=== PATIENT | female | born 1970 | race Caucasian/White ===

== ENCOUNTER 2016-09-25 13:47 | Inpatient (IN) | payer OTHER ==
[~2016-09-25] VITALS: Ht 162.6 cm; Wt 74.8 kg
[2016-09-26] MEDS ORDERED: SERT-129 PO (09:16)
[2016-09-26] MEDS ORDERED: HYDR-3535 PO (09:17)
[2016-09-26] MEDS ORDERED: GABA400C5 PO (09:18)
[2016-09-26] MEDS ORDERED: AMIT10TA6 PO (09:21)
[2016-09-26] MEDS ORDERED: ATOR20TA15 PO (09:22)
[2016-09-27] MEDS ORDERED: INSULIN HUMAN REGULAR 1,000 UNITS/10 ML VIAL SQ PRN (09:00)
[2016-09-27] MEDS ORDERED: POVIDONE IODINE 5% (ANTISEPSIS KIT) 4 APPLICATIONS EACH NARE PRN (09:00)
[2016-09-27] MEDS ORDERED: ceFAZolin 2 GM PREMIX 50 ML IV SCH (09:00)
[2016-09-27] MEDS ORDERED: CHLORHEXIDINE GLUCONATE 2 % 1 PACK (2 CLOTHS) TOPICAL PRN (09:00)
[2016-09-27] MEDS ORDERED: METOPROLOL TARTRATE 25 MG TAB PO PRN (09:00)
[2016-09-27] MEDS ORDERED: CHLORHEXIDINE GLUCONATE 4% SOLN 120 ML BTL TOPICAL SCH (09:00)
[2016-09-27] MEDS ORDERED: LACTATED RINGER'S 1000 ML IV PRN (09:00)
[2016-09-27] MEDS ORDERED: SODIUM CHLORID 0.9% 500 ML IV PRN (09:00)
[2016-09-27] MEDS ORDERED: VANCOMYCIN 1000 MG/NS 250 ML (for <70 kg) IV SCH ×2 (09:00)
[2016-09-27 09:12] VITALS: BP 116/74; PULSE 70; RESP 20; TEMP 98.7; O2SAT 98
[2016-09-27] MEDS ORDERED: PROPOFOL 500 MG/50 ML INJ 50 ML ONE (10:03)
[2016-09-27] MEDS ORDERED: SUFentanil INJ 250 MCG/5 ML AMP ONE (10:03)
[2016-09-27] MEDS ORDERED: GENTAMICIN SULFATE 80 MG/2 ML VIAL ONE (10:09)
[2016-09-27] MEDS ORDERED: LIDOCAINE 1%/EPINEPHrine 1:100,000 SOLN 30 ML VIAL ONE (10:09)
[2016-09-27] MEDS ORDERED: diphenhydrAMINE HCL 50 MG/ML VIAL ONE (10:22)
[2016-09-27] MEDS ORDERED: MIDAZOLAM HCL 2 MG/2 ML VIAL ONE (10:51)
[2016-09-27] MEDS ORDERED: FAMOTIDINE 20 MG/2 ML VIAL ONE (10:51)
[2016-09-27] MEDS ORDERED: PROPOFOL 200 MG/20 ML AMP IV ONE (12:00)
[2016-09-27] MEDS ORDERED: PROPOFOL 500 MG/50 ML BTL IV ONE (12:00)
[2016-09-27] MEDS ORDERED: LACTATED RINGER'S 1000 ML INJ 1,000 ML IV ONE (12:00)
[2016-09-27] MEDS ORDERED: ONDANSETRON HCL 4 MG/2 ML VIAL IV PUSH ONE (12:00)
[2016-09-27] MEDS ORDERED: SUGAMMADEX SODIUM 200 MG/2 ML VIAL IV PUSH ONE ×2 (12:00)
[2016-09-27] MEDS ORDERED: ePHEDrine/NS 25 MG/5 ML SYR IV ONE (12:00)
[2016-09-27] MEDS ORDERED: ACETAMINOPHEN 1000 MG/100 ML VIAL IV ONE (12:00)
--- NOTE | 2016-09-27 13:27 | PD.OP ---
cc: Gamaliel Nieto MD; Albert Nieto MD Operative Report Date of Surgery: Sep 27, 2016 Preoperative Diagnosis: Herniated nucleus pulposus C5 6 central. Herniated nucleus pulposus C6 7 central, right. Right greater than left cervical radiculopathy Postoperative Diagnosis: Same Procedure: Anterior cervical discectomy decompression with bilateral foraminotomies, C5 6. Anterocervical discectomy decompression with bilateral foraminotomies, C6 7. Left anterior iliac crest bone graft Anesthesia: Gen. Surgeon: Albert Nieto Recruiter Manager(s): INGRID Bagi Operation and Findings: EBL: 150 cc INDICATIONS: This patient is a 46-year-old female with significant neck and arm pain. She has radiating pain down both arms. Study shows evidence of a predominantly central disc herniation C5 6 and a central and right-sided disc herniation C6 7. She presents for surgical treatment. NOTE: Jenny Baig PA-C was present for the entire surgical procedure as my assistant media buyer. In my medical opinion her skill and care was necessary for proper management of this patient PROCEDURE: The patient was brought to the operating room and anesthetized in the supine position. This patient was positioned supine on the radiolucent table. All pressure points were protected in the anterior cervical spine and iliac crest was scrubbed with alcohol followed by Hibiclens followed by ChloraPrep. A timeout was done and antibiotics were given within 1 hour time window. Lateral radiographic images were used identifying the proper level. A right anterior incision was made in line with skin creases. The platysma was opened in line with the incision. Deep dissection continued in the interval between the carotid sheath and the esophagus. The longus-coli muscles were lifted on both sides and retractors were positioned allowing good exposure. Lateral radiographic images were used to identify the proper level. [place] style interosseous pins were placed at C5 and C6 allowing exposure to that level. The microscope was rolled into the field. A total discectomy was accomplished and posterior osteophytes were removed. The posterior longitudinal ligament and annulus was taken down. Bilateral foraminotomies were accomplished. The endplates were squared up anticipating later bone grafting. A blunt probe could be placed out each foramen without evidence of nerve root compromise. The C5 pin was placed down to C7. An anterior exposure was accomplished. We performed a total discectomy with excision of the posterior annulus and posterior longitudinal ligament. Bilateral foraminotomies were accomplished. Osteophytes were removed. The endplates were squared up anticipating later bone grafting. A blunt probe could be placed out each foramen without evidence of nerve root compromise. The left iliac crest was approached. A small stab incision was made allowing percutaneous access to the anterior iliac crest. Multiple cores of cancellous bone were harvested and taken to the back table to be used for later bone grafting. The wound was irrigated anesthetized and closed with 4-0 Vicryl followed by Dermabond. The case was turned over to Dr. Gamaliel Nieto for fusion and instrumentation per his dictation. FINDINGS: There was evidence of this disc herniation C5 6 centrally. That level was very unstable. At C6 7 there was a central and right-sided disc herniation. There was no complication was appreciated. There was significant foraminal stenosis which was decompressed. At the end of the procedure, there was no complication that was appreciated. NOTE: This surgery was performed in 2 parts. The first part was the neurosurgical decompression performed under the variable power stereo microscope by the undersigned in addition to the bone graft. The second portion of the surgery will be performed by the orthopedic spine component by co -surgeon, Dr. Gamaliel Nieto for the anterior fusion with interbody cage and anterior plate. The skill of 2 surgeons was necessary to perform distinct separate procedural services as dictated above and dictated in the following operative note by Dr. Gamaliel Nieto. Albert Nieto MD Sep 27, 2016 13:26
--- NOTE | 2016-09-27 14:20 | RADRPT ---
EXAM DATE/TIME: 09/27/2016 13:56 [facility] COMPARISON: No previous studies available for comparison. INDICATIONS : Post-op C5-C6-C7 anterior cervical fusion. MEDICAL HISTORY : None. SURGICAL HISTORY : None. ENCOUNTER: Initial ACUITY: 1 day PAIN SCORE: Non-responsive. LOCATION: neck FINDINGS: Surgical screws traverse the bodies of C5, C6, C7 with a plate placed anteriorly and evidence for ant erior fusion. CONCLUSION: Intact immediate postsurgical changes. Maria E Wilkinson MD on September 27, 2016 at 14:18 Board Certified Radiologist. This report was verified electronically.
[2016-09-27] MEDS ORDERED: Post-op Orders (for Pharmacy) MISC XX ONE (14:37)
--- NOTE | 2016-09-27 14:41 | HHI.PR ---
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 Visitor Services Specialist(s): Alix Muñoz PA-C Procedure: C5-7 ACDF Complications: none Estimated blood loss: 75 cc Anesthesia: General Drains: None Patient to: PACU Patient Condition: Good Implant/Devices: SEE IMPLANT LOG (if applicable) Date/Time of Procedure: SEE SURGICAL CARE RECORD Gamaliel Nieto MD Sep 27, 2016 14:41
[2016-09-27] MEDS: SODIUM CHLORIDE 0.9% FLUSH 5 ML FLUSH IVF SCH ×2 (14:45→21:13)
[2016-09-27] MEDS ORDERED: ALUMINUM/MAGNESIUM/SIMETH 30 ML CUP PO PRN (14:45)
[2016-09-27] MEDS ORDERED: ACETAMINOPHEN/HYDROcodone 325 MG/10 MG TAB PO PRN (14:45)
[2016-09-27] MEDS ORDERED: ONDANSETRON HCL 4 MG/2 ML VIAL IV PRN (14:45)
[2016-09-27] MEDS ORDERED: NALOXONE HCL 0.4 MG/ML AMP IV PRN ×2 (14:45)
[2016-09-27] MEDS ORDERED: SODIUM CHLORIDE 0.9% FLUSH 5 ML FLUSH IVF PRN (14:45)
[2016-09-27] MEDS ORDERED: PCA - TOTAL MG DILAUDID DELIVERED PER SHIFT SCH (14:45)
[2016-09-27] MEDS ORDERED: PROMETHAZINE INJ 25 MG/ML VIAL IM PRN (14:45)
[2016-09-27] MEDS ORDERED: fentaNYL CITRATE 250 MCG/5 ML AMP ONE (14:48)
[2016-09-27] MEDS ORDERED: *morphine SULFATE 8 MG/ML PERIprocedure ONLY ONE ×2 (14:53→15:07)
[2016-09-27] MEDS ORDERED: DO NOT ADM ANY ANTICOAGULANT DRUGS PRN (15:15)
[2016-09-27] MEDS: LACTATED RINGER'S 1000 ML INJ 1,000 ML IV SCH (15:20)
[2016-09-27] MEDS ORDERED: *HYDROmorphone PF 1 MG VIAL PERIprocedural Use ONLY ONE (15:45)
[2016-09-27 17:30] VITALS: BP 107/65; PULSE 89; RESP 16; TEMP 97; O2SAT 96
[2016-09-27] MEDS: ACETAMINOPHEN/HYDROcodone 325 MG/10 MG TAB PO PRN (18:42)
[2016-09-27 18:54] VITALS: O2SAT 99
[2016-09-27 20:00] VITALS: BP 112/68; PULSE 86; RESP 17; TEMP 97.3; O2SAT 96
[2016-09-27] MEDS: SERTRALINE HCL 100 MG TAB PO SCH (21:13)
[2016-09-27] MEDS: GABAPENTIN 400 MG CAP PO SCH (21:13)
[2016-09-27] MEDS: AMITRIPTYLINE HCL 10 MG TAB PO SCH (21:13)
[2016-09-27] MEDS: MORPHINE SULFATE 4 MG/ML INJ IV PUSH PRN (21:13)
[2016-09-27] MEDS: ATORVASTATIN 20 MG TAB PO SCH (21:13)
[2016-09-28] VITALS (7 sets, daily range): BP systolic 100–114; BP diastolic 57–67; PULSE 74–89; RESP 16–17; TEMP 97–98.5; O2SAT 94–98
[2016-09-28] MEDS: MORPHINE SULFATE 4 MG/ML INJ IV PUSH PRN ×3 (01:24→10:23)
[2016-09-28] MEDS: ACETAMINOPHEN/HYDROcodone 325 MG/10 MG TAB PO PRN ×4 (02:30→23:07)
[2016-09-28] MEDS: LACTATED RINGER'S 1000 ML INJ 1,000 ML IV SCH ×2 (03:02→12:51)
--- NOTE | 2016-09-28 07:07 | PD.ORT.PN ---
Subjective Subjective Remarks pt complains of post op neck pain and left arm pain, states right arm pain has resolved Objective Vitals Vital Signs Date Time Temp Pulse Resp B/P Pulse Ox O2 Delivery O2 Flow Rate FiO2 09/28/16 04:00 97.4 89 17 111/63 97 09/28/16 00:00 97.9 80 16 114/65 95 09/27/16 20:00 97.3 86 17 112/68 96 09/27/16 18:54 99 21 09/27/16 17:30 97.0 89 16 107/65 96 09/27/16 15:45 88 12 118/61 100 Nasal Cannula 2 09/27/16 15:30 97.7 84 14 119/67 100 Nasal Cannula 2 09/27/16 15:15 82 12 118/65 100 Nasal Cannula 2 09/27/16 15:00 88 14 124/64 100 Nasal Cannula 2 09/27/16 14:43 97.6 100 16 146/76 100 Nasal Cannula 2 09/27/16 09:12 98.7 70 20 116/74 98 I/O 09/27/16 09/27/16 09/27/16 09/28/16 09/28/16 09/28/16 07:00 15:00 23:00 07:00 15:00 23:00 Intake Total 1400 ml 580 ml 480 ml Output Total 25 ml Balance 1375 ml 580 ml 480 ml Intake Oral 480 ml 480 ml IV Total 100 ml Other 1400 ml Output Estimated Blood Loss 25 ml # Voids 2 2 # Bowel Movements 0 0 Objective Remarks also seen by Dr. Gamaliel Nieto [place] collar in place Dressing dry and intact Motor is +5/5 to UE except left wrist dorsiflexion 4.5/5 Assessment & Plan Assessment and Plan POD # 1 s/p C 5-7 ACDF [place] collar x 4 weeks patient counseled on no smoking, no NSAIDs and no overhead lifting She has [place] pain meds at home therefore no rx on discharge Follow up as scheduled orthopedically stable Alix Muñoz Sep 28, 2016 07:07
--- NOTE | 2016-09-28 08:43 | MP ---
cc: GAMALIEL HAM M.D., CARMEN L. MD DRIGGERS, WESLEY M.D. DATE OF SURGERY: 09/27/2016 PREOPERATIVE DIAGNOSIS: 1. C5-6 herniated nucleus pulposus, spinal instability. 2. C6-7 central right-sided herniated nucleus pulposus. 3. Cervical spine degenerative disc disease and osteoarthritis. 4. Bilateral cervical radiculitis with bilateral upper extremity weakness. POSTOPERATIVE DIAGNOSIS: 1. C5-6 herniated nucleus pulposus, spinal instability. 2. C6-7 central right-sided herniated nucleus pulposus. 3. Cervical spine degenerative disc disease and osteoarthritis. 4. Bilateral cervical radiculitis with bilateral upper extremity weakness. OPERATIVE PROCEDURE PERFORMED: C5-6, C6-7 interbody fusion; C5-6, C6-7 interbody fusion; C5-6 and C6-7 [employer]ine[employer] ACC Anterior Cervical Cage; C5-7 [employer] [place] anterior spinal instrumentation. CO-SURGEONS: Gamaliel Ham MD. Albert Ham MD. SMALL PACKAGE AND BUNDLE SORTER CLERK: Alix Muñoz PA-C. SPECIMEN: None. ESTIMATED BLOOD LOSS: 75 cc for the entire case. COMPLICATIONS: None. ANESTHESIA: General. DRAINS: None. CONDITION: Stable. PLAN OF ACTIVITY: As per orders. NOTE: Dr. Albert Ham and myself were co-surgeons for this surgical procedure. Dr. Albert Ham performed the neurodecompressive portion of procedure and also the left anterior iliac bone grafting. He performed C5-6, C6-7 anterior cervical diskectomy, anterior decompression including foraminotomies using an operative microscope and also performed left anterior iliac crest bone grafting. My executive personal assistant Alix Muñoz PA-C was present for my portion of the case. She was medically necessary for the entire case because of the complexity of the case and to facilitate the performance of the procedure. The STEAM SERVICE INSPECTOR at the back table did not have the skill set for this case to manipulate the instruments e.g. the trial implants and permanent implants including the soft tissue retractors. The end plates at C6-7 were prepared for fusion. The hyaline cartilage at the end plate was removed using angled curettes and burs. A 610 x 12 ACC cage was placed in the interspace. Anterior iliac crest bone grafting was placed under fluoroscopic guidance for interbody fusion. The patient was found to have an instability with kyphosis at C5-6 area. With the distraction pins, this was a nicely corrected. The end plates were removed using angled curettes and burs. A 610 x 12 ACC cage was placed in the interspace in a satisfactory manner. The 610 x 12 ACC cage was placed interspace. Anterior iliac crest bone graft was placed under fluoroscopic guidance for interbody fusion. A 40-mm length plate was contoured to the appropriate lordosis. Two screws were used in the vertebral bodies of C5, C6 and C7. Two plate tacks were used for fixation. This was confirmed on fluoroscopic guidance in the AP and lateral planes for appropriate positioning of the plate. Each of the screw holes were drilled and 12-mm length screws were inserted, 4.0 mm diameter screws, fixed angle screws and all screw heads were appropriately locked to the plate. The wound was irrigated with copious amounts of saline. The wound itself was dry. Intraoperative x-ray and fluoroscopy in AP and lateral planes confirmed satisfactory position of the bone graft at C5-6 at C6-7 with satisfactory placement of the C5-6 and C6-7 anterior cervical cages and satisfactory spinal instrumentation from C5-7. The wound was irrigated with copious amounts of sterile saline antibiotic solution. The wound itself was dry. The wound was closed in routine manner with multiple 3-0 Vicryl sutures. The skin was approximated with running subcuticular 4-0 Vicryl suture. Dermabond was placed over the incision. Sterile dressings were applied. The patient was placed in a [place] cervical orthosis. The patient tolerated the procedure well and went to the recovery room in stable and satisfaction condition. MD STEPHEN Bang/SULEIMAN /2:40 PM /8:37 AM
[2016-09-28] MEDS: SODIUM CHLORIDE 0.9% FLUSH 5 ML FLUSH IVF SCH ×2 (09:00→19:44)
[2016-09-28] MEDS: GABAPENTIN 400 MG CAP PO SCH ×2 (09:04→19:44)
[2016-09-28] MEDS: MULTIVITAMINS/MINERALS THERAPEUTIC TAB PO SCH ×2 (09:04→19:44)
[2016-09-28] MEDS ORDERED: CYCLOBENZAPRINE HCL 10 MG TAB PO PRN (15:15)
[2016-09-28] MEDS: SERTRALINE HCL 100 MG TAB PO SCH (19:44)
[2016-09-28] MEDS: AMITRIPTYLINE HCL 10 MG TAB PO SCH (19:44)
[2016-09-28] MEDS: ATORVASTATIN 20 MG TAB PO SCH (19:44)
[2016-09-29] VITALS: BP 100/58; PULSE 86; RESP 17; TEMP 98; O2SAT 94
[2016-09-29] MEDS: LACTATED RINGER'S 1000 ML INJ 1,000 ML IV SCH (00:44)
[2016-09-29] MEDS: ACETAMINOPHEN/HYDROcodone 325 MG/10 MG TAB PO PRN (05:24)
[2016-09-29 08:00] VITALS: BP 108/67; PULSE 69; RESP 18; TEMP 97.7; O2SAT 95
[2016-09-29] MEDS: GABAPENTIN 400 MG CAP PO SCH (08:33)
[2016-09-29] MEDS: MULTIVITAMINS/MINERALS THERAPEUTIC TAB PO SCH (08:33)
[2016-09-29] MEDS: SODIUM CHLORIDE 0.9% FLUSH 5 ML FLUSH IVF SCH (08:35)
--- NOTE | 2016-09-29 08:37 | PD.ORT.PN ---
Subjective Post Op Day #: 2 Subjective Remarks Pt reports her pain is much more under control today. Admits to mild left upper extremity pain. Numbness/tingling resolved. Ready for discharge to home today. Objective Vitals Vital Signs Date Time Temp Pulse Resp B/P Pulse Ox O2 Delivery O2 Flow Rate FiO2 09/29/16 00:00 98.0 86 17 100/58 94 09/28/16 20:00 97.8 85 16 102/62 97 09/28/16 16:00 98.5 80 16 101/57 95 09/28/16 12:00 97.0 74 16 100/62 95 I/O 09/28/16 09/28/16 09/28/16 09/29/16 09/29/16 09/29/16 07:00 15:00 23:00 07:00 15:00 23:00 Intake Total 480 ml 948 ml 480 ml 480 ml Balance 480 ml 948 ml 480 ml 480 ml Intake Oral 480 ml 840 ml 480 ml 480 ml IV Total 108 ml # Voids 2 4 2 2 # Bowel Movements 0 0 Procedures ACDF C5-7 (09/27/16) Objective Remarks [place] collar in place Dressing dry and intact Motor is +5/5 to UE except left wrist dorsiflexion 4.5/5 Assessment & Plan Ortho Post Op Day #: 2 Problem List: (1) Traumatic disc herniation of cervical spine (2) Degenerative arthritis of cervical spine with nerve compression Assessment and Plan POD # 2 s/p C 5-7 ACDF [place] collar x 4 weeks patient counseled on no smoking, no NSAIDs and no overhead lifting She has [place] pain meds at home therefore no rx on discharge Follow up as scheduled orthopedically stable and clear for discharge to home today. Christine Baig Sep 29, 2016 08:37
== END 2016-09-29 11:24 | disposition home or self-care (01) | DRG 473 ==
LOC: HSDI 09-27 08:19 → N06A 09-27 16:50
PROVIDERS: ADMIT Orthopaedic Surgery Orthopaedic Surgery of the Spine; ATTEND Orthopaedic Surgery Orthopaedic Surgery of the Spine
PROC: 0RG20A0 Fusion of 2 or more Cervical Vertebral Joints with Interbody Fusion Device, Anterior Approach, Anterior Column, Open Approach (ICD-10-PCS; 2016-09-27)
PROC: 0RT30ZZ Resection of Cervical Vertebral Disc, Open Approach (ICD-10-PCS; 2016-09-27)
PROC: 0QB33ZZ Excision of Left Pelvic Bone, Percutaneous Approach (ICD-10-PCS; 2016-09-27)
PROC: 0RG2070 Fusion of 2 or more Cervical Vertebral Joints with Autologous Tissue Substitute, Anterior Approach, Anterior Column, Open Approach (ICD-10-PCS; principal; 2016-09-27 10:57)
DX: M50.122 Cervical disc disorder at C5-C6 level with radiculopathy (principal); M53.2X9 Spinal instabilities, site unspecified; M47.22 Other spondylosis with radiculopathy, cervical region; M50.123 Cervical disc disorder at C6-C7 level with radiculopathy
CPT/HCPCS: 72040; 76000; 94150; C1713; J0131; J0690; J1170; J1200; J1580; J2250; J2270; J2405; J3010; J3370; J7050; J7120; L0150